=== PATIENT | male | born 1945 | race Caucasian/White ===

== ENCOUNTER 2018-06-06 19:08 | Inpatient (IN) | payer OTHER, BC ==
[~2018-06-06] VITALS: Ht 172.7 cm; Wt 73.4 kg
--- NOTE | ~2018-06-06 | HC ---
[facility] [place] [address] CONSULTATION Name: AIMEE HACKETT Dany Room #: 350-[facility] IN ..#: [id number] Admission: 06/06/18 Attend Phys: Adi Fernando DO Discharge: 06/15/18 Date of : 41 Report #: [id number] THIS REPORT FOR: //name// CC: Adi BLAIR DATE OF SERVICE: 06/08/2018 NEPHROLOGY CONSULTATION REASON FOR CONSULTATION: Acute kidney injury. HISTORY OF PRESENT ILLNESS: This 72-year-old gentleman with known advanced COPD, current heavy smoker, presented with respiratory insufficiency, developed severe hypercapnic respiratory failure, requiring intubation and became hypotensive. Serum creatinine was 2.5, with no prior history of renal disease with the hypotension. Serum creatinine is up to 3.5 today, with decreased urine output. The patient was on lisinopril at home and that was his only antihypertensive according to the records. He was also on Ventolin inhaler, Spiriva, fish oil and aspirin at home. PAST MEDICAL HISTORY: Past history includes a CVA, no residual defects; COPD; hypertension and there is a notation of CKD 3, although I do not have specific numbers in that regard. FAMILY HISTORY: Apparently is negative for renal disease. SOCIAL HISTORY: He is a heavy smoker, 1-3 packs per day. REVIEW OF SYSTEMS: Cannot be taken as the patient is sedated on propofol, intubated and there is no family here. PHYSICAL EXAMINATION: GENERAL: This is a chronically ill-appearing gentleman, on the ventilator, sedated. SKIN: Shows slightly decreased turgor. SKELETAL: Shows well developed, well nourished, not obese. HEENT: Extraocular movements cannot be tested. Pupils are reactive. Endotracheal tube is in place. NECK: Supple. CHEST: Very tight and wheezy. HEART: Regular. ABDOMEN: Soft and nontender. EXTREMITIES: Show no edema. Pulses intact. LABORATORY DATA: No urine is noted. White blood count is 15,000, there are 10% [address] [address] CONSULTATION Name: AIMEE HACKETT Room #: [facility] IN ..#: [id number] Admission: 06/06/18 Attend Phys: Adi Fernando DO Discharge: 06/15/18 Date of : 41 Report #: [id number] bands and platelets 262,000. Sodium 144, potassium 4.6, chloride 106, bicarbonate 30, creatinine 3.5 and BUN 77. ASSESSMENT AND PLAN: 1. Acute kidney injury. He apparently has some degree of chronic kidney disease. He is hypertensive. He was on a converting enzyme inhibitor, which in the presence of decreased renal perfusion, decreased blood pressure, right-sided failure related to his pulmonary disease and pulmonary hypertension, leads to decreased renal perfusion, exacerbated now by the low blood pressures. We will rehydrate this patient. Check urine electrolyte levels and try to get his blood pressure up. Pressors may be required. Currently, he has been given antibiotics and appropriate cultures have been taken in an effort to rule out sepsis. Procalcitonin has not been done. He is on high-dose steroids as well IV bolus and increase in IV fluids as indicated and we will certainly follow closely along in the ICU, checking urinary electrolytes as well. 2. Severe chronic obstructive pulmonary disease with exacerbation. 3. History of remote cerebrovascular accident. 4. History of hypertension, on converting-enzyme inhibitor. <ELECTRONICALLY SIGNED> By: Micky Carolina MD 06/16/18 [id number] Micky Carolina MD /nt
--- NOTE | ~2018-06-06 | 2DMMODE ---
[facility] [place] [address] 2 D/M-MODE ECHOCARDIOGRAM Name: AIMEE HACKETT Room #: 238-[facility] IN ..#: [id number] Admission: 06/06/18 Attend Phys: Adi Fernando DO Discharge: Date of : 41 Date of Service: 06/07/18 1252 Report #: [id number] THIS REPORT FOR: //name// APPROVED REPORT Study performed: 06/07/2018 09:44:16 EXAM: Comprehensive 2D, Doppler, and color-flow Echocardiogram Patient Location: ICU Room #: 238 Status: routine BSA: 1.84 HR: 97 bpm BP: 123/55 mmHg Rhythm: NSR Other Information Study Quality: Fair Indications CHF, Resp failure 2D Dimensions RVDd: 34.12 mm IVSd: 10.66 (7-11mm) LVOT Diam: 20.71 (18-24mm) LVDd: 39.72 mm PWd: 10.67 (7-11mm) Ascending Ao: 32.33 (22-36mm) LVDs: 28.54 (25-40mm) Aortic Root: 36.09 mm IVC: 20.00 mm Volumes Left Atrial Volume (Systole) Single Plane 4CH: 17.79 mL Single Plane 2CH: 40.57 mL LA ESV Index: 15.70 mL/m2 Aortic Valve AoV Peak Jens.: 2.08 m/s AO Peak Gr.: 17.32 mmHg AO Mean Gr.: 8.55 mmHg AO V2 Mean: 1.38 m/s AO V2 VTI: 35.82 cm Mitral Valve E/A Ratio: 0.8 MV Decel. Time: 188.37 ms [facility] [place] [place] [address] 2 D/M-MODE ECHOCARDIOGRAM Name: AIMEE HACKETT Room #: 238-P [facility].#: [id number] Admission: 06/06/18 Attend Phys: Adi Fernando DO Discharge: Date of : 41 Date of Service: 06/07/18 1252 Report #: [id number] E Max Jens.: 0.90 m/s MV A Jens.: 1.18 m/s MV PHT: 54.63 ms IVRT: 106.11 ms Pulmonary Valve PV Peak Jens.: 1.36 m/s PV Peak Gr.: 7.37 mmHg Pulmonary Vein P Vein S: 0.52 m/s P Vein A: 0.38 m/s P Vein D: 0.35 m/s P Vein S/D Ratio: 1.49 Tricuspid Valve TR Peak Jens.: 3.21 m/s RAP Estimate: 10.00 mmHg TR Peak Gr.: 41.12 mmHg PA Pressure: 51.00 mmHg Left Ventricle The left ventricle is normal size. There is normal LV segmental wall motion. There is normal left ventricular wall thickness. Left ventricular systolic function is hyperdynamic. LVEF is 65%. Mild diastolic dysfunction is present (impaired relaxation pattern). Right Ventricle The right ventricle is normal size. The right ventricular systolic function is normal. Atria The left atrium size is normal. The right atrium size is normal. Aortic Valve Aortic valve is probably bicuspid, calcified but no stenotic No aortic regurgitation is present. Mitral Valve The mitral valve is normal in structure. Trace mitral regurgitation. No evidence of mitral valve stenosis. Tricuspid Valve The tricuspid valve is normal in structure. Mild tricuspid regurgitation. Estimated PAP of 50 mmHg. Pulmonic Valve [facility] [address] [place] [address] 2 D/M-MODE ECHOCARDIOGRAM Name: AIMEE HACKETT Room #: 238-[facility] IN ..#: [id number] Admission: 06/06/18 Attend Phys: Adi Fernando DO Discharge: Date of : 41 Date of Service: 06/07/18 1252 Report #: [id number] The pulmonary valve is normal in structure. There is no pulmonic valvular regurgitation seen. Great Vessels The aortic root is normal in size. IVC is normal in size and collapses <50% with inspiration. Pericardium There is no pericardial effusion. <Conclusion> Left ventricular systolic function is hyperdynamic. LVEF is 65%. Mild diastolic dysfunction Aortic valve is probably bicuspid, calcified but no stenotic. No aortic regurgitation The mitral valve is normal in structure. Trace mitral regurgitation. Mild tricuspid regurgitation. Estimated pulmonary artery pressure of 50 mmHg. There is no pericardial effusion. <ELECTRONICALLY SIGNED> By: Rohit Dumont MD, FACC 06/07/18 125 125 51 Rohit Dumont MD, FACC /INF
[~2018-06-06 19:08] MED LIST: AMLODIPINE BESY10 MG PO; ASPIRIN325 PO; BENAZEPRIL HCL5 MG PO; FISH OIL 1,0001 EAC5 PO; WELLBUTRIN SR150 MG PO
[2018-06-06 23:20] LABS: BE(vivo) 3.2 mmol/L (-2 to +3); HCO3 31.9 mmol/L (22.0-26.0); PO2 63.5 mmHg (80.0-100.0); sO2 89.2 % (92.0-98.0)
[2018-06-06 23:21] LABS: PCO2 67.3 mmHg (35.0-45.0); pH 7.294 (7.360-7.450)
[2018-06-06] MEDS ORDERED: SPIRIVA INH (23:28)
[2018-06-06] MEDS ORDERED: VENTOLIN HFA 1818 GM INH (23:29)
[2018-06-06] MEDS ORDERED: LISINOPRIL10 MG PO (23:31)
[2018-06-07] VITALS (62 sets, daily range): BP systolic 68–180; BP diastolic 42–88
[2018-06-07 05:27] LABS: BE(vivo) 4.1 mmol/L (-2 to +3); HCO3 38.6 mmol/L (22.0-26.0); PCO2 125.1 mmHg (35.0-45.0); PO2 110.7 mmHg (80.0-100.0); pH 7.107 (7.360-7.450); sO2 95.7 % (92.0-98.0)
[2018-06-07 06:14] LABS: HEMATOCRIT 43.3 % (42.0-52.0); HEMOGLOBIN 14.3 gm/dL (14.0-18.0); MCH 32.1 pg (26.0-34.0); MCV 97.3 fL (80.0-100.0); RBC 4.45 mil/uL (4.50-6.00); RDW 13.5 % (10.5-14.5); WBC 13.2 thou/uL (4.0-11.0)
[2018-06-07 06:36] LABS: ANION GAP 4 mmol/L (7-16); BUN 52 mg/dL (7-18); CHLORIDE 102 mmol/L (98-107); CHOLESTEROL 165 mg/dL (<200); CO2 34 mmol/L (21-32); CREATININE 2.4 mg/dL (0.7-1.3); GLUCOSE 200 mg/dL (74-106); HDL CHOLESTEROL 29 mg/dL (>40); LDL CHOLESTEROL 111 mg/dL (<100); MAGNESIUM 2.4 mg/dL (1.8-2.4); SODIUM 140 mmol/L (136-145); TC:HDL 5.7 Ratio (Not establshd); TRIGLYCERIDE 125 mg/dL (<150); VLDL 25 mg/dL (<40)
[2018-06-07 06:44] LABS: POTASSIUM 6.1 mmol/L (3.5-5.1)
[2018-06-07 06:57] LABS: BE(vivo) 1.5 mmol/L (-2 to +3); HCO3 35.8 mmol/L (22.0-26.0); sO2 84.3 % (92.0-98.0)
[2018-06-07 06:58] LABS: PCO2 117.9 mmHg (35.0-45.0)
[2018-06-07 08:09] LABS: BE(vivo) -1.6 mmol/L (-2 to +3); HCO3 29.4 mmol/L (22.0-26.0); PO2 188.3 mmHg (80.0-100.0); sO2 98.9 % (92.0-98.0)
[2018-06-07 08:11] LABS: PCO2 82.7 mmHg (35.0-45.0); pH 7.169 (7.360-7.450)
[2018-06-07 10:37] LABS: BE(vivo) -2.4 mmol/L (-2 to +3); PO2 152.7 mmHg (80.0-100.0); sO2 98.1 % (92.0-98.0)
[2018-06-07 10:38] LABS: PCO2 97.4 mmHg (35.0-45.0); pH 7.107 (7.360-7.450)
[2018-06-07 12:25] LABS: BE(vivo) 1.4 mmol/L (-2 to +3); HCO3 32.7 mmol/L (22.0-26.0); PO2 273.4 mmHg (80.0-100.0); sO2 99.4 % (92.0-98.0)
[2018-06-07 12:26] LABS: pH 7.183 (7.360-7.450)
[2018-06-07 13:10] LABS: HEMATOCRIT 40.7 % (42.0-52.0); HEMOGLOBIN 13.5 gm/dL (14.0-18.0); MCH 32.4 pg (26.0-34.0); MCHC 33.3 g/dL (28.0-37.0); MCV 97.3 fL (80.0-100.0); RBC 4.19 mil/uL (4.50-6.00); RDW 13.6 % (10.5-14.5)
[2018-06-07 13:15] LABS: CALCIUM 9.1 mg/dL (8.5-10.1); CREATININE 2.5 mg/dL (0.7-1.3); POTASSIUM 5.5 mmol/L (3.5-5.1)
[2018-06-07 21:14] LABS: BE(vivo) 2.5 mmol/L (-2 to +3); HCO3 28.7 mmol/L (22.0-26.0); PCO2 50.5 mmHg (35.0-45.0); PO2 125.3 mmHg (80.0-100.0); pH 7.372 (7.360-7.450); sO2 98.4 % (92.0-98.0)
[2018-06-08] VITALS (24 sets, daily range): BP systolic 84–138; BP diastolic 42–78
[2018-06-08 05:09] LABS: BE(vivo) 2.3 mmol/L (-2 to +3); HCO3 27.9 mmol/L (22.0-26.0); PCO2 47.1 mmHg (35.0-45.0); PO2 93.5 mmHg (80.0-100.0)
[2018-06-08 06:15] LABS: HEMATOCRIT 36.4 % (42.0-52.0); HEMOGLOBIN 12.4 gm/dL (14.0-18.0); MCH 32.3 pg (26.0-34.0); MCV 95.2 fL (80.0-100.0); PLATELET COUNT 262 thou/uL (150-400); RBC 3.82 mil/uL (4.50-6.00); RDW 13.6 % (10.5-14.5)
[2018-06-08 08:23] LABS: ABSOLUTE NEUTROPHILS 12.6 thou/uL (1.4-8.2); PLATELET ESTIMATE NORMAL
[2018-06-08 09:00] LABS: CALCIUM 9.1 mg/dL (8.5-10.1); POTASSIUM 4.6 mmol/L (3.5-5.1)
[2018-06-08 09:05] LABS: CREATININE 3.5 mg/dL (0.7-1.3)
[2018-06-08 11:49] LABS: URINE BILIRUBIN NEGATIVE (Negative); URINE BLOOD 1+ (Negative); URINE CLARITY CLEAR; URINE COLOR YELLOW; URINE GLUCOSE-RANDOM* NEGATIVE (Negative); URINE KETONES NEGATIVE (Negative); URINE LEUKOCYTES 1+ (Negative); URINE NITRITE NEGATIVE (Negative); URINE PROTEIN (DIPSTICK) TRACE (Negative); URINE SPECIFIC GRAVITY 1.025 (1.005-1.035); URINE UROBILINOGEN 0.2 E.U./dl (0.2-1.0)
[2018-06-08 11:53] LABS: URINE CREATININE-RANDOM* 197.6 mg/dL
[2018-06-08 12:06] LABS: HYALINE CASTS 0-3 Few /LPF (None Seen); SQUAMOUS 0-3 Few /LPF (0-3)
[2018-06-08 12:07] LABS: MUCUS >6 Heavy strn/LPF (None Seen); URINE RBC 3-10 Few /HPF (0-2); URINE WBC 6-15 Few /HPF (0-5)
[2018-06-08 12:08] LABS: BACTERIA 1-9 Few /HPF (None Seen); CRYSTALS None Seen /LPF (None Seen)
[2018-06-09] VITALS (18 sets, daily range): BP systolic 110–163; BP diastolic 55–82
[2018-06-09 06:18] LABS: HEMATOCRIT 35.7 % (42.0-52.0); HEMOGLOBIN 11.8 gm/dL (14.0-18.0); MCH 31.7 pg (26.0-34.0); MCV 96.1 fL (80.0-100.0); RBC 3.72 mil/uL (4.50-6.00); RDW 13.8 % (10.5-14.5); WBC 15.1 thou/uL (4.0-11.0)
[2018-06-09 06:28] LABS: ALBUMIN 2.1 g/dL (3.4-5.0); CALCIUM 8.4 mg/dL (8.5-10.1); CREATININE 3.2 mg/dL (0.7-1.3); PHOSPHORUS 4.5 mg/dL (2.5-4.9); POTASSIUM 4.3 mmol/L (3.5-5.1)
[2018-06-09 09:43] LABS: BE(vivo) -3.2 mmol/L (-2 to +3); HCO3 27.1 mmol/L (22.0-26.0); PCO2 76.4 mmHg (35.0-45.0); PO2 106.1 mmHg (80.0-100.0); pH 7.167 (7.360-7.450); sO2 96.2 % (92.0-98.0)
[2018-06-10] VITALS (25 sets, daily range): BP systolic 134–175; BP diastolic 66–88
[2018-06-10 00:08] LABS: ADENOVIRUS Negative (Negative); INFLUENZA A Negative (Negative); INFLUENZA B Negative (Negative); METAPNEUMOVIRUS Negative (Negative); PARAINFLUENZA 1 Negative (Negative); PARAINFLUENZA 2 Negative (Negative); PARAINFLUENZA 3 Negative (Negative); RHINOVIRUS Positive (Negative); RSV A Negative (Negative); RSV B Negative (Negative)
[2018-06-10 05:51] LABS: HEMATOCRIT 38.9 % (42.0-52.0); HEMOGLOBIN 13.1 gm/dL (14.0-18.0); MCH 32.3 pg (26.0-34.0); MCHC 33.7 g/dL (28.0-37.0); MCV 95.7 fL (80.0-100.0); RBC 4.06 mil/uL (4.50-6.00); RDW 13.9 % (10.5-14.5); WBC 14.9 thou/uL (4.0-11.0)
[2018-06-10 06:01] LABS: ALBUMIN 2.2 g/dL (3.4-5.0); CALCIUM 8.5 mg/dL (8.5-10.1); CREATININE 2.6 mg/dL (0.7-1.3); PHOSPHORUS 5.1 mg/dL (2.5-4.9); POTASSIUM 4.6 mmol/L (3.5-5.1)
[2018-06-11] VITALS (70 sets, daily range): BP systolic 119–187; BP diastolic 60–108
[2018-06-11 05:27] LABS: HEMATOCRIT 40.1 % (42.0-52.0); HEMOGLOBIN 13.3 gm/dL (14.0-18.0); MCHC 33.1 g/dL (28.0-37.0); MCV 96.5 fL (80.0-100.0); RBC 4.15 mil/uL (4.50-6.00); RDW 14.2 % (10.5-14.5); WBC 12.8 thou/uL (4.0-11.0)
[2018-06-11 05:38] LABS: ALBUMIN 2.2 g/dL (3.4-5.0); CALCIUM 8.4 mg/dL (8.5-10.1); CREATININE 2.3 mg/dL (0.7-1.3); PHOSPHORUS 5.1 mg/dL (2.5-4.9); POTASSIUM 5.1 mmol/L (3.5-5.1)
[2018-06-11 09:53] LABS: BE(vivo) -0.5 mmol/L (-2 to +3); HCO3 25.7 mmol/L (22.0-26.0); PCO2 48.2 mmHg (35.0-45.0); PO2 81.8 mmHg (80.0-100.0); pH 7.345 (7.360-7.450); sO2 95.4 % (92.0-98.0)
[2018-06-12] VITALS (68 sets, daily range): BP systolic 126–196; BP diastolic 64–90
[2018-06-12 07:06] LABS: ALBUMIN 2.4 g/dL (3.4-5.0); CALCIUM 8.6 mg/dL (8.5-10.1); CREATININE 2.2 mg/dL (0.7-1.3); PHOSPHORUS 4.8 mg/dL (2.5-4.9); POTASSIUM 5.6 mmol/L (3.5-5.1)
[2018-06-13] VITALS (7 sets, daily range): BP systolic 154–189; BP diastolic 80–102
[2018-06-13 07:14] LABS: HEMATOCRIT 41.6 % (42.0-52.0); HEMOGLOBIN 13.5 gm/dL (14.0-18.0); MCH 31.3 pg (26.0-34.0); MCHC 32.4 g/dL (28.0-37.0); MCV 96.4 fL (80.0-100.0); PLATELET COUNT 245 thou/uL (150-400); RBC 4.32 mil/uL (4.50-6.00); RDW 14.1 % (10.5-14.5); WBC 18.3 thou/uL (4.0-11.0)
[2018-06-13 07:21] LABS: ALBUMIN 2.5 g/dL (3.4-5.0); CALCIUM 8.8 mg/dL (8.5-10.1); CREATININE 2.4 mg/dL (0.7-1.3); PHOSPHORUS 4.1 mg/dL (2.5-4.9); POTASSIUM 5.5 mmol/L (3.5-5.1)
[2018-06-13 08:52] LABS: ABSOLUTE NEUTROPHILS 16.7 thou/uL (1.4-8.2); PLATELET ESTIMATE NORMAL
[2018-06-14 03:50] VITALS: BP 175/95
[2018-06-14 07:21] LABS: ALBUMIN 2.5 g/dL (3.4-5.0); CALCIUM 8.7 mg/dL (8.5-10.1); CREATININE 2.1 mg/dL (0.7-1.3); PHOSPHORUS 4.5 mg/dL (2.5-4.9); POTASSIUM 5.6 mmol/L (3.5-5.1)
[2018-06-14 07:39] VITALS: BP 169/84
[2018-06-14 11:52] VITALS: BP 158/88
[2018-06-14 16:48] VITALS: BP 151/84
[2018-06-14 19:25] VITALS: BP 150/84
[2018-06-15 03:45] VITALS: BP 156/85
[2018-06-15 08:42] VITALS: BP 144/62
[2018-06-15] MEDS ORDERED: CEFUROXIME500 MG PO (09:21)
[2018-06-15] MEDS ORDERED: PREDNISONE 10 M10 MG PO (09:22)
[2018-06-15] MEDS ORDERED: PULMICORT0.5 MG/21 INH (09:24)
[2018-06-15 10:07] LABS: ALBUMIN 2.7 g/dL (3.4-5.0); CALCIUM 9.1 mg/dL (8.5-10.1); CREATININE 2.5 mg/dL (0.7-1.3); PHOSPHORUS 4.3 mg/dL (2.5-4.9); POTASSIUM 5.1 mmol/L (3.5-5.1)
[2018-06-15 12:29] VITALS: BP 144/62
[2018-06-15 13:10] VITALS: BP 141/72
[2018-06-15] MEDS ORDERED: NORVASC10 MG PO (14:32)
[2018-06-15 14:58] VITALS: BP 144/62
== END 2018-06-15 16:06 | disposition home or self-care (01) | DRG 870 ==
LOC: ICU 19:08 → 3W 06-12 16:42 → ENTRNSPT 06-15 15:49 → 3W 06-15 16:06
PROVIDERS: Emergency Medicine; Hospitalist; Internal Medicine; Internal Medicine Nephrology; Nurse Practitioner Acute Care; Pediatrics; Student in an Organized Health Care Education/Training Program
DX: A41.9 Sepsis, unspecified organism (principal); J96.21 Acute and chronic respiratory failure with hypoxia; J18.9 Pneumonia, unspecified organism; J96.22 Acute and chronic respiratory failure with hypercapnia; J44.0 Chronic obstructive pulmonary disease with (acute) lower respiratory infection; E87.2 Acidosis; J44.1 Chronic obstructive pulmonary disease with (acute) exacerbation; N17.9 Acute kidney failure, unspecified; I13.0 Hypertensive heart and chronic kidney disease with heart failure and stage 1 through stage 4 chronic kidney disease, or unspecified chronic kidney disease; I50.30 Unspecified diastolic (congestive) heart failure; E87.0 Hyperosmolality and hypernatremia; I27.20 Pulmonary hypertension, unspecified; D64.9 Anemia, unspecified; B97.89 Other viral agents as the cause of diseases classified elsewhere; I27.21 Secondary pulmonary arterial hypertension; R26.9 Unspecified abnormalities of gait and mobility; I95.9 Hypotension, unspecified; I36.1 Nonrheumatic tricuspid (valve) insufficiency; R79.1 Abnormal coagulation profile; E87.5 Hyperkalemia; F17.210 Nicotine dependence, cigarettes, uncomplicated; N18.3 Chronic kidney disease, stage 3 (moderate); Z79.899 Other long term (current) drug therapy; Z88.2 Allergy status to sulfonamides; Z86.73 Personal history of transient ischemic attack (TIA), and cerebral infarction without residual deficits; Z71.6 Tobacco abuse counseling; Z78.1 Physical restraint status; Z23 Encounter for immunization
CPT/HCPCS: 10078; 10879